=== PATIENT | female | born 1955 | race Caucasian/White ===

== ENCOUNTER 2018-01-14 21:36 | Emergency (ER) | payer BC ==
[~2018-01-14] VITALS: Ht 177.8 cm; Wt 88.5 kg
[2018-01-14 21:42] VITALS: BP 209/121
--- NOTE | 2018-01-14 21:45 | NUR ---
PT BIBSELF DUE TO CAT BITE. VS STABLE. Pt BEING SEEN BY .
[2018-01-14] MEDS ORDERED: TDAP [DIPH/PERTUSSIS/TET] 0.5 ML VIAL IM ONE ×2 (22:00→22:09)
[2018-01-14] MEDS ORDERED: AMOX/CLAVULANATE 875 MG TABLET PO ONE (22:00)
--- NOTE | 2018-01-14 22:00 | NUR ---
TDAP GIVEN ON R SHOULDER. LOT [id number]. EXP 10/07/19
--- NOTE | 2018-01-14 22:05 | NUR ---
Patient discharged to home in stable condition. Written and verbal after care instructions given. Patient verbalizes understanding of instruction.
[2018-01-14] MEDS ORDERED: AMOX/CLAVULANATE 875 MG TABLET ONE (22:09)
== END 2018-01-14 22:25 | disposition home or self-care (01) ==
LOC: ER 21:38
DX: S50.872A Other superficial bite of left forearm, initial encounter (principal); Z90.89 Acquired absence of other organs; W55.01XA Bitten by cat, initial encounter; Y93.89 Activity, other specified; Y92.89 Other specified places as the place of occurrence of the external cause; Y99.8 Other external cause status
CPT/HCPCS: 90471; 90715; 99283; A4606; A6402; Z7610